=== PATIENT | female | born 1985 | race Caucasian/White ===

== ENCOUNTER 2017-04-13 14:13 | Emergency (ER) | payer SELFPAY ==
[2017-04-13 14:18] VITALS: BP 118/75
== END 2017-04-13 14:50 | disposition left against medical advice (07) ==
LOC: UCEAST 14:13
DX: Z04.8 Encounter for examination and observation for other specified reasons (principal); Z53.21 Procedure and treatment not carried out due to patient leaving prior to being seen by health care provider

== ENCOUNTER 2018-07-17 15:54 | Emergency (ER) | payer BC ==
--- NOTE | 2018-07-17 17:04 | ED ---
Complex/Multi-Sys Presentation - HPI Summary HPI Summary: Pt. is a 32 y.o female who presents to the ER for fever, sinus pressure/ congestion, dry cough, h/a, dizziness and weakness x 1 week. Pt. states she has been taking mucinex and advil with little relief. She also notes mild ongoing abd. pain. She denies vomiting, diarrhea, urinary symptoms, or vaginal symptoms. She has no past medical hx. Denies sick contacts. Symptoms are mild- moderate in severity. Movement makes symptoms worse. Rest makes symptoms better. - History Of Current Complaint Chief Complaint: EDHeadache Time Seen by Provider: 07/17/18 16:47 Hx Obtained From: Patient - Allergies/Home Medications Allergies/Adverse Reactions: Allergies Allergy/AdvReac Type Severity Reaction Status Date / Time No Known Allergies Allergy Verified 01/26/15 06:55 PMH/Surg Hx/FS Hx/Imm Hx Previously Healthy: Yes Cardiovascular History: Denies: Hx Hypertension Respiratory History: Denies: Hx Asthma, Hx Chronic Obstructive Pulmonary Disease (COPD) History: Reports: Other Problems/Disorders - HX OF UTI'S, NONE NOW Sensory History: Reports: Hx Contacts or Glasses - GLASSES Denies: Hx Hearing Aid Opthamlomology History: Reports: Hx Contacts or Glasses - GLASSES Neurological History: Reports: Hx Headaches - RELATED TO NOT WEARING GLASSES - Surgical History Surgery Procedure, Year, and Place: 2008 & 2012 C SECTION X 2, [facility] Hx Anesthesia Reactions: No - Immunization History Immunizations Up to Date: Yes Infectious Disease History: No Infectious Disease History: Denies: Hx Clostridium Difficile, Hx Hepatitis, Hx Human Immunodeficiency Virus (HIV), Hx of Known/Suspected MRSA, Hx Shingles, Hx Tuberculosis, Hx Known/ Suspected VRE, Hx Known/Suspected VRSA, History Other Infectious Disease, Traveled Outside the [place] in Last 30 Days - Family History Known Family History: Positive: Hypertension - Social History Occupation: Unemployed Lives: With Family Alcohol Use: None Substance Use Type: Reports: None Smoking Status (MU): Light Every Day Tobacco Smoker Type: Cigarettes Amount Used/How Often: 3-4 CIGARETTES PER DAY Have You Smoked in the Last Year: Yes Review of Systems Positive: Fever, Chills Eyes: Negative Positive: Other - sinus pressure Cardiovascular: Negative Negative: Palpitations, Chest Pain Positive: Cough. Negative: Shortness Of Breath Positive: Abdominal Pain. Negative: Vomiting, Diarrhea, Nausea Genitourinary: Negative Negative: dysuria, discharge Positive: Myalgia Positive: Headache, Weakness - generalized.. Negative: Paresthesia, Numbness, Syncope All Other Systems Reviewed And Are Negative: Yes Physical Exam Triage Information Reviewed: Yes Vital Signs On Initial Exam: Initial Vitals Temp Pulse Resp BP Pulse Ox 98.4 F 95 16 120/80 99 07/17/18 15:59 07/17/18 15:59 07/17/18 15:59 07/17/18 15:59 07/17/18 15:59 Vital Signs Reviewed: Yes Appearance: Positive: Well-Appearing - Pt. sitting up in bed in NAD. Appears fatigued but nontoxic. Skin: Positive: Warm, Dry Head/Face: Positive: Normal Head/Face Inspection Eyes: Positive: Normal, EOMI ENT: Positive: Pharyngeal erythema, Sinus tenderness - frontal. Negative: Tonsillar swelling, Tonsillar exudate Neck: Positive: Supple, Nontender. Negative: Nuchal Rigidity Respiratory/Lung Sounds: Positive: Clear to Auscultation, Breath Sounds Present. Negative: Rales, Rhonchi, Wheezes Cardiovascular: Positive: Normal, RRR Abdomen Description: Positive: Other: - Abd. is soft and mild tenderness to the LUQ. No rebound tenderness or guarding. Neurological: Positive: Normal, CN Intact II-III Psychiatric: Positive: Affect/Mood Appropriate Diagnostics - Vital Signs Vital Signs Temp Pulse Resp BP Pulse Ox 07/17/18 15:59 98.4 F 95 16 120/80 99 - Laboratory Result Diagrams: 07/17/18 17:22 07/17/18 17:22 Lab Statement: Any lab studies that have been ordered have been reviewed, and results considered in the medical decision making process. Complex Multi-Symp Course/Dx Course Of Treatment: Patient presenting with headache, fever, sinus congestion, dizziness, as well as abd. pain. She is afebrile with stable VS. Pt. is concerned with her feeling weak and dizzy. Feel her sxs are most likely secondary to sinusitis. Will obtain basic labs, give IV fluids and toradol for h /a and fatigue. Blood work is unremarkable. Results discussed with pt. She is feeling mildly better after medication. Given ongoing worsening sx will put her on zithromax and flonase for sinusitis. [facility]2 [facility]. To increase fluids and rest. Tylenol or motrin for pain as directed. To return to ER if symptoms change or worsen. Pt. understands and agrees with plan. - Diagnoses Provider Diagnoses: Acute bacterial sinusitis Discharge - Sign-Out/Discharge Documenting (check all that apply): Patient Departure - Discharge Plan Condition: Good Disposition: HOME Prescriptions: Azithromyxin LORENA (NF) [Z-Lorena (Zithromax) 250 mg tabs #6] 2 tab PO .TODAY, THEN 1 DAILY #6 tab Fluticasone NASAL SPRAY 50MCG* [Flonase NASAL SPRAY 50MCG*] 2 spray BOTH NARES DAILY #1 btl Patient Education Materials: Sinusitis (ED) Referrals: [facility] [Outside] No Primary Care Phys,NOPCP [Primary Care Provider] - Additional Instructions: Schedule a follow up appointment with the [facility] Take medication as directed Tylenol or Motrin for pain as directed Increase fluids and rest Return to ER if symptoms change or worsen - Billing Disposition and Condition Condition: GOOD Disposition: Home
[2018-07-17] MEDS ORDERED: Ketorolac INJ* 30 MG/ML 1 ML VIAL IV PUSH ONE (17:15)
[2018-07-17] MEDS ORDERED: NS 0.9% 1000 ML* 1,000 ML IV ONE (17:15)
[2018-07-17 17:38] LABS: ABS Basophils 0 10^3/ul (0-0.2); ABS Eosinophils 0.2 10^3/ul (0-0.6); ABS Lymphocytes 2.2 10^3/ul (1.0-4.8); ABS Monocytes 0.5 10^3/ul (0-0.8); ABS Neutrophils 4.6 10^3/ul (1.5-7.7); ABS Nucleated RBC 0 10^3/ul; Eosinophil % 2.1 % (0-6); Hematocrit 42 % (35-47); Hemoglobin 14.3 g/dl (12.0-16.0); Lymphocyte % 29.9 % (25-47); Mean Corpuscular HGB Conc 34 g/dl (31-36); Mean Corpuscular Hemoglobin 29 pg (27-31); Mean Corpuscular Volume 87 fL (80-97); Mean Platelet Volume 7.8 um3 (7.4-10.4); Nucleated Red Blood Cells % 0.1; Platelet Count 182 10^3/ul (150-450); Red Blood Count 4.88 10^6/ul (4.00-5.40); Red Cell Distribution Width 12 % (10.5-15); White Blood Count 7.5 10^3/ul (3.5-10.8)
[2018-07-17 18:03] LABS: EGFR Non-African American 104.5 (>60)
[2018-07-17 18:28] VITALS: BP 97/55
== END 2018-07-17 18:27 | disposition home or self-care (01) ==
LOC: ED 15:54
DX: J01.90 Acute sinusitis, unspecified (principal); B96.89 Other specified bacterial agents as the cause of diseases classified elsewhere; F17.210 Nicotine dependence, cigarettes, uncomplicated
CPT/HCPCS: 36415; 80053; 83690; 84702; 85025; 96374; 99282; J1885

== ENCOUNTER 2019-04-09 08:18 | Day surgery (SDC) | payer OTHER ==
[~2019-04-09 08:18] MED LIST: Buffered Lidocaine 1% SYRIN* 1 ML/SYRINGE INTRADERM ONE; Famotidine IV* 10 MG/ML 2 ML (20 mg) IV ONE; Lactated Ringers 1000 ML Bag* 1,000 ML IV SCH; Midazolam* 1 MG/ML 5 ML VIAL (5 MG) ONE; fentaNYL* 50 MCG/ML 2 ML VIAL (100 MCG VIAL) ONE
[2019-04-09] MEDS ORDERED: Famotidine IV* 10 MG/ML 2 ML (20 mg) ONE (08:54)
[2019-04-09] MEDS ORDERED: Dexamethasone IV* 4 MG/ML 1 ML (4 MG) ONE (09:33)
[2019-04-09] MEDS ORDERED: Ketorolac INJ* 30 MG/ML 1 ML VIAL ONE (09:33)
[2019-04-09] MEDS ORDERED: DiMENhydriNATE IV* 50 MG/ML VIAL ONE (09:33)
[2019-04-09] MEDS ORDERED: Ondansetron INJ* 2 MG/ML VIAL ONE (09:33)
[2019-04-09] MEDS ORDERED: Lidocaine 2% PF * 5 ML VIAL ONE (09:33)
[2019-04-09] MEDS ORDERED: Propofol* 10 MG/ML 20 ML BTL ONE (09:33)
[2019-04-09] MEDS ORDERED: DiMENhydriNATE IV* 50 MG/ML VIAL IV PUSH PRN (09:39)
[2019-04-09] MEDS ORDERED: Naloxone* 0.4 MG/ML 1 ML VIAL IV PRN (09:39)
[2019-04-09] MEDS ORDERED: Acetaminophen TAB* 325 MG PO PRN (09:39)
[2019-04-09] MEDS ORDERED: HYDROmorphone INJ1* 1 MG/ML SYRINGE ONE (10:15)
[2019-04-09] MEDS: HYDROmorphone INJ1* 1 MG/ML SYRINGE IV PRN ×4 (10:16→11:15)
[2019-04-09] MEDS ORDERED: Acetaminophen TAB* 325 MG ONE (10:49)
[2019-04-09 11:10] VITALS: BP 104/63
--- NOTE | 2019-04-15 10:48 | OP ---
OPERATIVE REPORT: DATE OF OPERATION: 04/09/19 DATE OF : 87 SURGEON: Garret Yung MD. LENS CUTTER: None. ANESTHESIA: General anesthetic with laryngeal mask airway anesthesia. PRE-OP DIAGNOSIS: Displaced intrauterine device. POST-OP DIAGNOSIS: Displaced intrauterine device. OPERATIVE PROCEDURE: Hysteroscopic intrauterine device removal. ESTIMATED BLOOD LOSS: None. SPECIMENS: There was no specimen sent to Pathology. FLUIDS: She received 500 cc of IV crystalloid fluid, hysteroscopic fluids were even at 1300 cc. URINE OUTPUT: 50 cc of clear urine. FINDINGS: The IUD string was noted inside the uterine cavity. The IUD was rotated towards the left in a transverse position. DESCRIPTION OF PROCEDURE: The patient was taken to the operating room where she was identified. She was placed on the operating table where a general anesthetic with laryngeal mask airway was obtained . She was then placed in the dorsal lithotomy position, prepped and draped in normal sterile fashion . Attention was then brought onto the patient's perineum. The bladder was catheterized of clear uri ne. After catheterization, a weighted speculum was inserted into the patient's vagina. The cervix w as then grasped with a single-tooth tenaculum. The uterus was then sounded to about 9 cm in antevert ed position. I proceeded to dilate the cervix so I can introduce operating hysteroscope. Once the c ervix was dilated, the hysteroscope was introduced and a survey of the patient's uterine cavity, dalton kristi, and findings were noted as above. At this point, I proceeded to grasp the IUD string with the h ysteroscope instrument, and the IUD was removed intact. A second look into the uterine cavity reveal ed a normal uterine cavity with no lesions and no bleeding. At this point, all the instruments were removed from the patient's vagina. Sponge, lap, and needle counts were correct x2. She was then tra nsferred to recovery room in stable condition. [id number]/[facility] #: [id number]
== END 2019-04-09 11:57 | disposition home or self-care (01) ==
LOC: OR 08:18
PROVIDERS: ATTEND Obstetrics & Gynecology
DX: T83.32XA Displacement of intrauterine contraceptive device, initial encounter (principal); R10.2 Pelvic and perineal pain; N94.89 Other specified conditions associated with female genital organs and menstrual cycle; Z87.891 Personal history of nicotine dependence
CPT/HCPCS: 81025; A9270-GY; J1100; J1170; J1240; J1885; J2250; J2405; J2704; J3010

== ENCOUNTER 2022-02-09 12:08 | Observation (INO) ==
[2022-02-09 13:01] LABS: ABS Eosinophils 0.1 10^3/ul (0-0.6); ABS Lymphocytes 1.7 10^3/ul (1.0-4.8); ABS Monocytes 0.3 10^3/ul (0-0.8); ABS Neutrophils 3.3 10^3/ul (1.5-7.7); Eosinophil % 1.2 %; Hematocrit 38 % (35-47); Hemoglobin 12.8 g/dL (12.0-16.0); Lymphocyte % 31.3 %; Mean Corpuscular HGB Conc 34 g/dL (31-36); Mean Corpuscular Hemoglobin 29 pg (27-31); Mean Corpuscular Volume 85 fL (80-97); Mean Platelet Volume 7.4 fL (7.4-10.4); Platelet Count 177 10^3/uL (150-450); Red Blood Count 4.44 10^6 /uL (3.70-4.87); Red Cell Distribution Width 12 % (10-15); White Blood Count 5.3 10^3/uL (3.5-10.8)
[2022-02-09 13:10] LABS: Activated Partial Thrombo Time 31.2 seconds (26.0-38.0); INR 1.22 (0.86-1.15)
[2022-02-09 13:24] LABS: Anion Gap 6 mmol/L (2-11); Blood Urea Nitrogen 8 mg/dL (6-24); CO2 Carbon Dioxide 27 mmol/L (22-32); Calcium 8.7 mg/dL (8.6-10.3); Chloride 105 mmol/L (101-111); Glucose 88 mg/dL (70-100); Potassium 3.9 mmol/L (3.5-5.0); Sodium 138 mmol/L (135-145); eGFR CKD-EPI 120.5 (>60)
[2022-02-09] MEDS ORDERED: oxyCODONE SR 10 mg TAB ONE (13:29)
[2022-02-09] MEDS ORDERED: Scopolamine 1 mg/72hr PATCH ONE (13:29)
[2022-02-09] MEDS ORDERED: Ondansetron ODT 4 mg TAB 4 MG TAB ONE (13:29)
[2022-02-09 13:30] LABS: HCG Pregnancy < 0.60 mIU/mL
[2022-02-09] MEDS ORDERED: Clindamycin 600 MG/D5W BAG IV ONE (14:00)
[2022-02-09] MEDS ORDERED: HYDROmorphone PCA 1 MG/ML Titrat per Protocol PCA SCH (15:00)
[2022-02-09] MEDS ORDERED: Lidocaine 1% VIAL 10 MG/ML VIAL ONE (15:36)
[2022-02-09] MEDS ORDERED: Heparin 2 UNITS/ML IVPREMIX 1,000 UNIT/500 ML BAG IV ONE (15:36)
[2022-02-09] MEDS ORDERED: Iohexol 350 (CONTRAST) 200 ML MDV IV ONE ×2 (15:36→15:46)
[2022-02-09] MEDS ORDERED: Midazolam 5 mg/5 ml VIAL 1 mg/ml 5 ml VIAL (5 mg) ONE (15:39)
[2022-02-09] MEDS ORDERED: fentaNYL 100 mcg/2 ml 50 MCG/ML VIAL ONE ×2 (15:40→16:09)
[2022-02-09] MEDS ORDERED: nitroGLYCERIN DRIP 25,000 MCG/250 ML BTL ONE (15:44)
[2022-02-09] MEDS ORDERED: Clindamycin 900 MG/D5W BAG IVPB ONE (16:00)
[2022-02-09] MEDS ORDERED: HYDROmorphone 0.5 MG/0.5 ML SYRINGE ONE ×3 (16:49→17:01)
[2022-02-10] MEDS ORDERED: NS 0.9% 1,000 ML IV SCH (01:15)
[2022-02-10] MEDS: Ondansetron 4 mg VIAL 2 MG/ML 2 ml VIAL IV SCH ×2 (01:48→08:18)
[2022-02-10] MEDS ORDERED: HYDROcodone/ACETAMIN 5/325 mg TAB PO PRN (08:13)
[2022-02-10] MEDS: CMC: Ketorolac 10 mg TAB (NF) PO SCH ×2 (08:42→15:10)
[2022-02-10 13:06] VITALS: BP 95/65
== END 2022-02-10 16:00 | disposition home or self-care (01) ==
LOC: SSU 12:08 → CHICATH 12:08 → SUATTDRO 18:26
PROVIDERS: ADMIT Hospitalist; ATTEND Hospitalist
PROC: ANG.UFE (2022-02-09 12:10)

== ENCOUNTER 2023-09-18 10:48 | Inpatient (IN) ==
[2023-09-18] MEDS ORDERED: NS 0.9% 1000 ml BAG 1,000 ML IV ONE (11:01)
[2023-09-18] MEDS ORDERED: Acetaminophen IV 1 GM/100ML 1,000 MG/100 ML BAG IV ONE (11:32)
[2023-09-18 11:37] LABS: ABS Monocytes 0.3 10^3/uL (0.0-0.9); ABS Neutrophils 7.4 10^3/uL (1.5-7.6); Eosinophil % 0.1 %; Hematocrit 13.8 % (35-45); Hemoglobin 4.7 g/dL (11.5-14.3); Lymphocyte % 11.1 %; Mean Corpuscular Hemoglobin 30.3 pg (27-33); Mean Corpuscular Hgb Conc 34.4 g/dL (31-36); Mean Corpuscular Volume 88.2 fL (80-97); Mean Platelet Volume 7.5 fL (7.5-11.2); Platelet Count 180 10^3/uL (150-450); Red Blood Count 1.56 10^6/uL (3.63-4.92); Red Cell Distribution Width 13.6 % (12-17); White Blood Count 8.6 10^3/uL (3.8-11.8)
[2023-09-18 11:45] LABS: INR 1.49 (0.83-1.13)
[2023-09-18 12:00] LABS: Albumin 3.1 g/dL (3.2-5.2); Albumin/Globulin Ratio 1.9 (1-3); Calcium 7.5 mg/dL (8.6-10.3); Creatinine, Serum 0.64 mg/dL (0.51-0.95); Globulin 1.6 g/dL (2-4); Potassium 3.6 mmol/L (3.5-5.0); Total Bilirubin 0.2 mg/dL (0.2-1.0); Total Protein 4.7 g/dL (6.4-8.9); eGFR CKD-EPI 117.4 (>60)
[2023-09-18 13:08] LABS: Urine Appearance Clear; Urine Bilirubin Negative (Negative); Urine Blood 2+ (Negative); Urine Color Straw; Urine Glucose Negative (Negative); Urine Ketones Negative (Negative); Urine Nitrite Negative (Negative); Urine Protein Negative (Negative); Urine Specific Gravity 1.008 (1.002-1.030); Urine Urobilinogen Negative (Negative)
[2023-09-18 13:50] LABS: Urine Bacteria Absent (Absent); Urine Red Blood Cell Trace(0-2/hpf) (Absent); Urine Squamous Epithelial Cell Present (Absent); Urine White Blood Cell Trace(0-5/hpf) (Absent)
[2023-09-18] MEDS ORDERED: Morphine 4 MG/ML VIAL (1 ml) IV ONE ×2 (17:33→17:53)
[2023-09-18] MEDS ORDERED: Morphine 4 MG/ML VIAL (1 ml) ONE (17:55)
[2023-09-18] MEDS ORDERED: Azithromycin 500 mg/250 ml NS 500 MG/250 ML BAG IVPB ONE (18:18)
[2023-09-18 18:19] LABS: ABS Basophils 0.1 10^3/uL (0.0-0.1); ABS Lymphocytes 2.3 10^3/uL (1.0-4.8); ABS Monocytes 0.4 10^3/uL (0.0-0.9); ABS Neutrophils 8.2 10^3/uL (1.5-7.6); ABS Nucleated RBC 0.01 10^3/ul; Eosinophil % 0.1 %; Hematocrit 19.7 % (35-45); Hemoglobin 6.8 g/dL (11.5-14.3); Mean Corpuscular Hemoglobin 30.6 pg (27-33); Mean Corpuscular Hgb Conc 34.6 g/dL (31-36); Mean Corpuscular Volume 88.3 fL (80-97); Mean Platelet Volume 8.1 fL (7.5-11.2); Nucleated Red Blood Cells % 0.1 %/100WBC (0.0-0.8); Platelet Count 139 10^3/uL (150-450); Red Blood Count 2.23 10^6/uL (3.63-4.92); Red Cell Distribution Width 14.5 % (12-17)
[2023-09-18 18:56] LABS: Schistocytes ABSENT
[2023-09-18 19:01] LABS: Platelet Count 157 10^3/ul (150-450)
[2023-09-18 19:26] LABS: Activated Partial Thrombo Time 19.4 seconds (26.0-38.0); INR 1.21 (0.83-1.13)
[2023-09-18] MEDS: HYDROmorphone 0.5 MG/0.5 ML SYRINGE IV PRN (20:13)
[2023-09-19 01:26] LABS: Hematocrit 23.6 % (35-45); Hemoglobin 8.3 g/dL (11.5-14.3)
[2023-09-19 06:20] LABS: ABS Lymphocytes 2.2 10^3/uL (1.0-4.8); ABS Monocytes 0.4 10^3/uL (0.0-0.9); ABS Neutrophils 6.7 10^3/uL (1.5-7.6); ABS Nucleated RBC 0.01 10^3/ul; Eosinophil % 0.4 %; Hemoglobin 8.5 g/dL (11.5-14.3); Lymphocyte % 23.4 %; Mean Corpuscular Hgb Conc 35.6 g/dL (31-36); Mean Platelet Volume 7.7 fL (7.5-11.2); Nucleated Red Blood Cells % 0.1 %/100WBC (0.0-0.8); Platelet Count 132 10^3/uL (150-450); Red Blood Count 2.76 10^6/uL (3.63-4.92); Red Cell Distribution Width 14.4 % (12-17); White Blood Count 9.2 10^3/uL (3.8-11.8)
[2023-09-19 06:34] LABS: INR 1.26 (0.83-1.13)
[2023-09-19 06:42] LABS: Calcium 7.8 mg/dL (8.6-10.3); Creatinine, Serum 0.56 mg/dL (0.51-0.95); Magnesium 1.8 mg/dL (1.9-2.7); Potassium 3.4 mmol/L (3.5-5.0); eGFR CKD-EPI 121.2 (>60)
[2023-09-19] MEDS ORDERED: Magnesium Sulfate 2 gm BAG 2 GM/50 ML BAG IVPB ONE (08:15)
[2023-09-19] MEDS ORDERED: Potassium Chlor 20 meq TAB.ER PO ONE (08:15)
[2023-09-19] MEDS ORDERED: Gadoteridol (CONTRAST) 279.3 MG/ML 10 ML IV ONE (11:26)
[2023-09-19] MEDS ORDERED: Iohexol 350 (CONTRAST) 100 ML PAK IV ONE ×2 (13:10→13:58)
[2023-09-19] MEDS ORDERED: Lidocaine 1% VIAL 10 MG/ML 30 ML VIAL ONE (13:10)
[2023-09-19] MEDS ORDERED: Midazolam 5 mg/5 ml VIAL 1 mg/ml 5 ml VIAL (5 mg) ONE (13:11)
[2023-09-19] MEDS ORDERED: Heparin 2 UNITS/ML IVPREMIX 3,000 UNIT/1,500 ML BAG IV ONE (13:11)
[2023-09-19] MEDS ORDERED: fentaNYL 100 mcg/2 ml 50 MCG/ML VIAL ONE (13:11)
[2023-09-19] MEDS ORDERED: Ondansetron 4 mg VIAL 2 MG/ML 2 ml VIAL ONE (13:35)
[2023-09-19] MEDS: HYDROmorphone 0.5 MG/0.5 ML SYRINGE IV PRN ×3 (16:54→23:03)
[2023-09-19 17:06] LABS: Hematocrit 23.5 % (35-45); Hemoglobin 8.2 g/dL (11.5-14.3)
[2023-09-19] MEDS ORDERED: Azithromycin 250 MG in NS 0.9% 250 ml 250 ML IVPB SCH (18:00)
[2023-09-19] MEDS: CEFAZOLIN 1 GM IVPB SCH (20:40)
[2023-09-19] MEDS: [UNRECOGNIZED DRUG - OTHER] IVPB SCH (20:40)
[2023-09-19] MEDS ORDERED: Acetaminophen IV 1 GM/100ML 1,000 MG/100 ML BAG IV ONE (21:28)
[2023-09-20] MEDS: [UNRECOGNIZED DRUG - OTHER] IVPB SCH ×4 (00:39→18:24)
[2023-09-20] MEDS: CEFAZOLIN 1 GM IVPB SCH ×4 (00:39→18:24)
[2023-09-20] MEDS: HYDROmorphone 0.5 MG/0.5 ML SYRINGE IV PRN ×4 (00:54→19:59)
[2023-09-20] MEDS ORDERED: Lactated Ringers 1000 ml BAG 500 ML IV ONE (01:40)
[2023-09-20] MEDS ORDERED: Norepinephrine 4 MG/250mL D5W 4,000 MCG/250 ML BAG IV SCH (04:00)
[2023-09-20 04:09] LABS: ABS Eosinophils 0.1 10^3/uL (0.0-0.5); ABS Lymphocytes 1.7 10^3/uL (1.0-4.8); ABS Monocytes 0.3 10^3/uL (0.0-0.9); ABS Neutrophils 5.5 10^3/uL (1.5-7.6); ABS Nucleated RBC 0.01 10^3/ul; Eosinophil % 1.1 %; Hematocrit 23.3 % (35-45); Lymphocyte % 22.1 %; Mean Corpuscular Hemoglobin 30.4 pg (27-33); Mean Corpuscular Hgb Conc 34.5 g/dL (31-36); Mean Corpuscular Volume 88.1 fL (80-97); Mean Platelet Volume 7.6 fL (7.5-11.2); Nucleated Red Blood Cells % 0.1 %/100WBC (0.0-0.8); Platelet Count 138 10^3/uL (150-450); Red Blood Count 2.65 10^6/uL (3.63-4.92); White Blood Count 7.5 10^3/uL (3.8-11.8)
[2023-09-20 04:26] LABS: Calcium 7.6 mg/dL (8.6-10.3); Creatinine, Serum 0.55 mg/dL (0.51-0.95); Globulin 1.5 g/dL (2-4); Magnesium 1.9 mg/dL (1.9-2.7); Total Bilirubin 0.5 mg/dL (0.2-1.0); Total Protein 4.5 g/dL (6.4-8.9); eGFR CKD-EPI 121.8 (>60)
[2023-09-20 14:38] LABS: ABS Eosinophils 0.1 10^3/uL (0.0-0.5); ABS Lymphocytes 1.1 10^3/uL (1.0-4.8); ABS Monocytes 0.3 10^3/uL (0.0-0.9); ABS Neutrophils 6.3 10^3/uL (1.5-7.6); ABS Nucleated RBC 0.01 10^3/ul; Hematocrit 24.4 % (35-45); Hemoglobin 8.6 g/dL (11.5-14.3); Lymphocyte % 13.8 %; Mean Corpuscular Hemoglobin 30.7 pg (27-33); Mean Corpuscular Volume 87.9 fL (80-97); Mean Platelet Volume 7.3 fL (7.5-11.2); Nucleated Red Blood Cells % 0.1 %/100WBC (0.0-0.8); Platelet Count 172 10^3/uL (150-450); Red Blood Count 2.78 10^6/uL (3.63-4.92); White Blood Count 7.8 10^3/uL (3.8-11.8)
[2023-09-20 14:52] LABS: INR 1.18 (0.83-1.13)
[2023-09-20] MEDS ORDERED: Ondansetron 4 mg VIAL 2 MG/ML 2 ml VIAL IV ONE (22:37)
[2023-09-21] MEDS: [UNRECOGNIZED DRUG - OTHER] IVPB SCH ×3 (00:13→13:15)
[2023-09-21] MEDS: CEFAZOLIN 1 GM IVPB SCH ×3 (00:13→13:15)
[2023-09-21 06:07] LABS: ABS Eosinophils 0.1 10^3/uL (0.0-0.5); ABS Lymphocytes 1.3 10^3/uL (1.0-4.8); ABS Monocytes 0.3 10^3/uL (0.0-0.9); ABS Neutrophils 6.4 10^3/uL (1.5-7.6); ABS Nucleated RBC 0.01 10^3/ul; Eosinophil % 0.9 %; Hematocrit 24.2 % (35-45); Hemoglobin 8.6 g/dL (11.5-14.3); Lymphocyte % 16.3 %; Mean Corpuscular Hgb Conc 35.3 g/dL (31-36); Mean Corpuscular Volume 87.8 fL (80-97); Mean Platelet Volume 7.3 fL (7.5-11.2); Nucleated Red Blood Cells % 0.2 %/100WBC (0.0-0.8); Platelet Count 163 10^3/uL (150-450); Red Blood Count 2.76 10^6/uL (3.63-4.92); Red Cell Distribution Width 15.1 % (12-17); White Blood Count 8.1 10^3/uL (3.8-11.8)
[2023-09-21 06:23] LABS: Albumin 3.2 g/dL (3.2-5.2); Albumin/Globulin Ratio 1.8 (1-3); Calcium 7.9 mg/dL (8.6-10.3); Creatinine, Serum 0.61 mg/dL (0.51-0.95); Globulin 1.8 g/dL (2-4); Magnesium 1.8 mg/dL (1.9-2.7); Phosphorus 4.5 mg/dL (2.5-5.0); Potassium 3.9 mmol/L (3.5-5.0); Total Bilirubin 0.5 mg/dL (0.2-1.0); eGFR CKD-EPI 118.8 (>60)
[2023-09-21 16:05] VITALS: BP 107/62
== END 2023-09-21 16:55 | disposition home or self-care (01) | DRG 546 ==
LOC: ED 10:48 → EDHOLD 18:34 → ICU 18:34
PROVIDERS: ADMIT Student in an Organized Health Care Education/Training Program; ATTEND Student in an Organized Health Care Education/Training Program
PROC: ANG.UFE (2023-09-19 13:15)